=== PATIENT | male | born 1940 | race Caucasian/White ===

== ENCOUNTER → 2017-03-11 | Outpatient (CLI) | payer MEDICARE ==
[~2017-03-11] MED LIST: ATOR20TA49 PO; CIPR-225 PO; HYDR-3875 PO; PHEN-640 PO; SULF1TAB35 PO; TAMS0.4C98 PO
--- NOTE | 2017-03-11 19:21 | Diagnostic Imaging Report ---
Supine view of the abdomen. INDICATION: Right renal stone. FINDINGS: Nonspecific small densities up to 3 mm in size are seen projecting over the flanks could represent stones in the kidneys. No definitive ureteric or bladder stone is noted. Phleboliths are noted in the pelvis. IMPRESSION: Faint densities along the flank areas bilaterally may represent kidney stones up to 3 mm in size. Dictated by: Dictated on workstation # [id number]
== END ==
LOC: RAD 13:52
PROVIDERS: ATTEND Urology
DX: N20.0 Calculus of kidney (principal)
CPT/HCPCS: 74000

== ENCOUNTER → 2017-03-25 | Outpatient (CLI) | payer MEDICARE ==
--- NOTE | 2017-03-25 20:21 | Diagnostic Imaging Report ---
EXAMINATION: Supine view of the abdomen. INDICATION: Right renal stone, post lithotripsy. COMPARISON: 03/11/2017. FINDINGS: The previously seen calcific densities projecting over the flank areas are not well demonstrated on the current exam. Moderate amount of fecal material is seen in the colon. Calcifications in the pelvis are likely phleboliths. IMPRESSION: The previously seen flank calcifications are not well demonstrated at this time. No definitive urinary tract stones. Dictated by: Dictated on workstation # [id number]
== END ==
LOC: RAD 15:11
PROVIDERS: ATTEND Urology
DX: N20.0 Calculus of kidney (principal); Z98.890 Other specified postprocedural states
CPT/HCPCS: 74000

== ENCOUNTER 2019-09-21 05:59 | Outpatient (RCR) | payer MEDICARE, OTHER ==
[~2019-09-21] VITALS: Ht 185 cm; Wt 90.9 kg
[~2019-09-21 05:59] MED LIST changes: -TAMS0.4C98 PO; +TMSL.4C PO
[2019-09-21] MEDS ORDERED: AMLO5TAB9 PO (09:53)
== END 2019-09-22 14:57 | disposition home or self-care (01) ==
LOC: PREOP 05:59
PROVIDERS: ATTEND Specialist
DX: Z01.818 Encounter for other preprocedural examination (principal); Z01.812 Encounter for preprocedural laboratory examination; Z11.59 Encounter for screening for other viral diseases
CPT/HCPCS: 87635

== ENCOUNTER 2019-09-25 08:50 | Day surgery (SDC) | payer MEDICARE, OTHER ==
[~2019-09-25] VITALS: Ht 182.9 cm; Wt 90.9 kg
[~2019-09-25 08:50] MED LIST changes: +AMLO5TAB9 PO
[2019-09-25 09:00] VITALS: BP 145/92
[2019-09-25] MEDS: TETRACAINE 0.5% OPHTH SOLN 4 ML BTL (SINGLE DOSE ONLY) OU PRN ×4 (09:10→09:26)
--- OUTSIDE RECORDS SUMMARY | 2019-09-25 09:13 | XMS REPORT | Continuity of Care Document ---
Author Organization Unknown Address Unknown Phone Unavailable Allergies Active Description Code Type Severity Reaction Onset Reported/Identified Relationship to Patient Clinical Status Yes NO KNOWN DRUG ALLERGIES UNKNOWN NO KNOWN DRUG ALLERG Yes NO KNOWN DRUG ALLERGIES UNKNOWN UNKNOWN Yes No Known Drug Allergies [id number] Drug Allergy Unknown N/A 09/21/2019 Medications Medication Packaging Start Date St op Date Route Dosage Sig ONDANSETRON VIAL INJ 4 MG/2CC (ZOFRAN 2CC VIAL) MG 02/14/2017 02/14/2017 PRN ONCE FENTANYL INJ 100 MCG/2CC VIAL MCG 02/14/2017 02/14/2017 ONCE&1708 KETOROLAC VIAL INJ 30 MG/CC (TORADOL VIAL) MG 02/14/2017 02/14/2017 PRN ONCE FENTANYL INJ 100 MCG/2CC VIAL MCG 02/14/2017 02/14/2017 ONCE&1717 MIDAZOLAM 2CC VIAL INJ 1 MG/ CC (VERSED 2CC VIAL) MG 02/14/2017 02/14/2017 ONCE&1727 FENTANYL INJ 100 MCG/2CC VIAL MCG 02/14/2017 02/14/2017 ONCE&1743 Hyoscyamine oral disintegrating 0.125mg(Le vsin) MG 02/14/2017 02/14/2017 ONCE&1748 POTASSIUM CHLORIDE TAB 20 MEQ (K-DUR) MEQ 02/14/2017 02/14/2017 ONCE&1801 CEFTRIAXONE PREMIX IV BAG IV 1 GM/50CC (ROCEPHIN PREMIX IV BAG) GM 02/14/2017 02/14/2017 ONCE&1826 NORMAL SALINE 1000CC IV BAG INJ 0.9 % (NS 1000CC IV BAG) ml 02/14/2017 03/01/2017 CONTINUOUSEVERY 0 Hour SMZ/TMP DS TAB (SEPTRA DS) (Bactrim DS) TAB 02/14/2017 02/14/2017 ONCE&1916 SMZ/TMP DS TAB (SEPTRA DS) (Bactrim DS) TAB 02/14/2017 02/21/2017 BID&0800,2000 KETOROLAC VIAL INJ 30 MG/CC (TORADOL VIAL) MG 02/15/2017 02/15/2017 PRN ONCE CEFTRIAXONE PREMIX IV BAG IV 1 GM/50CC (ROCEPHIN PREMIX IV BAG) GM 02/15/2017 02/21/2017 Daily&0900 Problems Date Dx Coded Attending Type Code Diagnosis Diagnosed By 03/21/1456 ROSANNA PERALTA MD, Ot Z01.812 ENCOUNTER FOR PREPROCEDURAL LABORATORY E 03/21/1456 ROSANNA PERALTA MD, Ot Z01.818 ENCOUNTER FOR OTHER PREPROCEDURAL EXAMIN 03/21/1456 ROSANNA PERALTA MD, Ot Z11.59 ENCOUNTER FOR SCREENING FOR OTHER VIRAL 02/14/2017 David Powesr 592.1 CALCULUS OF URETER 02/14/2017 David Powers 601.9 PROSTATITIS, UNSPECIFIED 02/14/2017 David Powers N20.1 CALCULUS OF URETER 02/14/2017 David Powers N41.9 INFLAMMATORY DISEASE OF PROSTATE, UNSPECIFIED 02/15/2017 Epifanio Carson 594.1 OTHER CALCULUS IN BLADDER 02/15/2017 Epifanio Carson 599.0 URINARY TRACT INFECTION, SITE NOT SPECIFIED 02/15/2017 Epifanio Carson N21.0 CALCULUS IN BLADDER 02/15/2017 Epifanio Carson N39.0 URINARY TRACT INFECTION, SITE NOT SPECIFIED 02/20/2017 David Powers 592.0 CALCULUS OF KIDNEY 02/20/2017 David Powers N20.0 CALCULUS OF KIDNEY 02/27/2017 CHRISTOPHER MACK MD, Ot N20.2 CALCULUS OF KIDNEY WITH CALCULUS OF URET 02/27/2017 CHRISTOPHER MACK MD Ot Z01.8 18 ENCOUNTER FOR OTHER PREPROCEDURAL EXAMIN 02/27/2017 CHRISTOPHER MACK MD, Ot N20.2 CALCULUS OF KIDNEY WITH CALCULUS OF URET 02/27/2017 CHRISTOPHER MACK MD Ot Z01.8 18 ENCOUNTER FOR OTHER PREPROCEDURAL EXAMIN 02/27/2017 CHRISTOPHER MACK MD, Ot E78.5 HYPERLIPIDEMIA, UNSPECIFIED 02/27/2017 CHRISTOPHER MACK MD Ot N20.2 CALCULUS OF KIDNEY WITH CALCULUS OF URET 02/27/2017 CHRISTOPHER MACK MD Ot N40.0 BENIGN PROSTATIC HYPERPLASIA WITHOUT LOW 02/27/2017 CHRISTOPHER MACK MD Ot Z79.8 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 02/27/2017 CHRISTOPHER MACK MD Ot N20.2 CALCULUS OF KIDNEY WITH CALCULUS OF URET 02/27/2017 CHRISTOPHER MACK MD Ot Z01.8 18 ENCOUNTER FOR OTHER PREPROCEDURAL EXAMIN 02/28/2017 CHRISTOPHER MACK MD Ot N20.2 CALCULUS OF KIDNEY WITH CALCULUS OF URET 02/28/2017 CHRISTOPHER MACK MD Ot Z01.8 18 ENCOUNTER FOR OTHER PREPROCEDURAL EXAMIN 03/01/2017 CHRISTOPHER MACK MD Ot E78.5 HYPERLIPIDEMIA, UNSPECIFIED 03/01/2017 CHRISTOPHER MACK MD Ot N20.2 CALCULUS OF KIDNEY WITH CALCULUS OF URET 03/01/2017 CHRISTOPHER MACK MD Ot N40.0 BENIGN PROSTATIC HYPERPLASIA WITHOUT LOW 03/01/2017 CHRISTOPHER MACK MD Ot Z79.8 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 03/01/2017 CHRISTOPHER MACK MD Ot E78.5 HYPERLIPIDEMIA, UNSPECIFIED 03/01/2017 CHRISTOPHER MACK MD Ot N20.2 CALCULUS OF KIDNEY WITH CALCULUS OF URET 03/01/2017 CHRISTOPHER MACK MD Ot N40.0 BENIGN PROSTATIC HYPERPLASIA WITHOUT LOW 03/01/2017 CHRISTOPHER MACK MD Ot Z79.8 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 03/05/2017 CHRISTOPHER MACK MD Ot E78.5 HYPERLIPIDEMIA, UNSPECIFIED 03/05/2017 CHRISTOPHER MACK MD Ot N20.2 CALCULUS OF KIDNEY WITH CALCULUS OF URET 03/05/2017 CHRISTOPHER MACK MD Ot N40.0 BENIGN PROSTATIC HYPERPLASIA WITHOUT LOW 03/05/2017 CHRISTOPHER MACK MD Ot Z79.8 99 OTHER DETENTION (CURRENT) DRUG THERAPY 03/15/2017 CHRISTOPHER MACK MD Ot E78.5 HYPERLIPIDEMIA, UNSPECIFIED 03/15/2017 CHRISTOPHER MACK MD Ot N20.2 CALCULUS OF KIDNEY WITH CALCULUS OF URET 03/15/2017 CHRISTOPHER MACK MD Ot N40.0 BENIGN PROSTATIC HYPERPLASIA WITHOUT LOW 03/15/2017 CHRISTOPHER MACK MD Ot Z79.8 99 OTHER DETENTION (CURRENT) DRUG THERAPY 03/22/2017 CHRISTOPHER MACK MD Ot N20.0 CALCULUS OF KIDNEY 04/05/2017 CHRISTOPHER MACK MD, Ot N20.0 CALCULUS OF KIDNEY 04/05/2017 CHRISTOPHER MACK MD Ot Z98.8 90 OTHER SPECIFIED POSTPROCEDURAL STATES Procedures There is no data. Results Test Result Range Lipid Panel - 12/18/16 08:15 C/HDL 3.5 3.7-6.7 Cholesterol 153 mg/dL 100-240 HDL 44 mg/dL 30-85 LDL-Calculated 86 mg/dL 0-100 Trig 113 mg/dL 35-160 VLDL 23 mg/dL 0-42 Urine Culture - 01/17/17 19:19 PRELIM CULTURE RESULTS >100,000 Gram Negativ e Lactose It Coordinator SHANNON / ID to Follow MEDIA PLATED Setup at 19:23 on 01/17/2017 CULTURE SOURCE void Sensi - 01/17/17 19:19 FINAL CULTURE RESULTS Escherichia coli (Isolate 1) Ampicillin/Sulbactam <=8/4 Ampicillin <=8 Amoxicillin/K Clavulanate <=8/4 Ceftriaxone <=8 Ciprofloxacin <=1 Nitrofurantoin <=32 Gentamicin <=4 Levofloxacin <=2 Trimethoprim/ Sulfamethoxazole <=2/38 Tetracycline <=4 Amikacin <=16 Aztreonam <=8 Ceftazidime <=1 Ceftazidime/K Clavulanate <=0.25 Cephalothin <=8 Cefotaxime <=2 Cefotaxime/K Clavulanate <=0.5 Cefoxitin <=8 Cefazolin <=8 Cefepime <=8 Cefuroxime <=4 Ertapenem <=1 Imipenem <=4 Meropenem <=4 Piperacillin/Tazobactam <=16 Piperacillin <=16 Tigecycline <=2 Tobramycin <=4 BMP - 02/14/17 17:08 Anion Gap 20 6-14 BUN 20 mg/dL 5-25 Calcium 9.9 mg/dL 8.3-10.4 Chloride 105 mmol/L 95-114 CO2 18 mEq/L 22-33 Creat 1.55 mg/dL 0.50-1.50 eGFR 44 mL/min/1.73m2 >59 Glucose 126 mg/dL 70-110 Osmo 293 280-295 Potassium 3.2 mmol/L 3.5-5.3 Sodium 140 mmol/L 134-148 Urine Culture - 02/14/17 17:08 PRELIM CULTURE RESULTS No Growth 24 hours FINAL CULTURE RESULTS No Growth 48 hours CULTURE SOURCE clean catch CBC with Auto Diff - 02/15/17 06:51 Baso% 0.20 % 0.00-2.50 Eos 0.1 K/uL 0.0-0.7 Eos% 1.0 % 0.0-7.0 Hct 38.4 % 42.0-52.0 Hgb 12.4 g/dL 14.0-17.0 Lym 1.59 K/uL 0.60-3.40 Lym% 17.1 % 10.0-50.0 MCH 31.0 pg 27.0-31.2 MCHC 32.3 g/dL 32.0-36.0 MCV 96.0 fL 80.0-97.0 [place]% 10.0 % 0.0-12.0 MPV 10.1 fL 7.4-10.0 Helio% 71.7 % 37.0-80.0 Plt 203 K/uL 150-400 RBC 4.00 M/uL 4.20-5.40 RDW 13.5 % 11.6-14.8 WBC 9.31 K/uL 5.00-10.00 Helio 6.68 K/uL 2.00-6.90 [place] 0.9 K/uL 0.0-0.9 Baso 0.0 K/uL 0.0-0.2 Methicillin resistant Staphylococcus aur eus (MRSA) screening culture - 02/27/17 08:00 Methicillin resistant Staphylococcus aureus (MRSA) scr eening culture NEG NRG PSA Yearly Screen - 02/10/19 08:21 PSA TOTAL 2.7 ng/mL 0.0-4.0 Coronavirus SARS-CoV-2 SO 2019 - 0 13:20 Coronavirus Ab [Units/volume] in Serum Negative Negative Encounters ACCT No. Visit Date/Time Discharge Status Pt. Type Provider Facility Loc./Unit Complaint [id number] 06/10/2019 13:44:00 06/10/2019 23:59 :00 DIS Outpatient AilynIon [id number] 04/29/2019 11:21:00 04/29/2019 23:59 :00 DIS Outpatient AilynIon [id number] 02/10/2019 08:17:00 02/10/2019 23:59: 00 DIS Outpatient Ailyn Ion [id number] 02/09/2019 15:38:00 02/09/2019 23:59: 00 DIS Outpatient AilynIon [id number] 02/20/2017 03:41:00 02/20/2017 03:47: 00 DIS Outpatient David Powers [id number] 02/15/2017 06:32:00 02/15/2017 07:23: 00 [id number]/14[facility]2017 16:57:00 02/14/2017 19:05: 00 [id number] 01/17/2017 19:18:00 01/17/2017 23:59: 00 DIS Outpatient AilynIon [id number] 12/18/2016 08:10:00 12/18/2016 23:59: 00 DIS Outpatient Ailyn Ion [id number] 02/14/2017 17:09:42 Document Registration [id number] 09/21/2019 05:59:00 020 14:57:00 DIS Outpatient ROSANNA PERALTA MD [facility] PREOP CATARACT RIGHT EYE [id number] 03/25/2017 15:11:00 017 23:59:59 CLS Outpatient CHRISTOPHER MACK MD [facility] RAD RENAL STONE [id number] 03/12/2017 08:00:00 017 23:59:59 CLS Preadmit CHRISTOPHER MACK MD [facility] SDC RIGHT STONE [id number] 03/11/2017 13:52:00 017 23:59:59 CLS Outpatient CHRISTOPHER MACK MD [facility] RAD N20.0 [id number] 02/27/2017 07:03:00 017 13:02:00 DIS Outpatient CHRISTOPHER MACK MD [facility] LEFT URETERAL AND BILAT ERAL RENAL STONES [id number] 02/26/2017 05:31:00 23:59:59 CLS Outpatient CHRISTOPHER MACK MD [facility] PREOP LEFT URETERAL AND BILAT ERAL RENAL STONES [id number] 09/25/2019 12:00:00 P EN Preadchris PERALTA MD, ROSANNA Goncalves [facility] CATARACT RIGHT EYE
[2019-09-25] MEDS ORDERED: POVIDONE (BETADINE) OPHTH SOLN 5% 30 ML OP ONE (09:15)
[2019-09-25] MEDS ORDERED: LIDOCAINE PF 1% 2 ML VIAL IR PRN (09:15)
[2019-09-25] MEDS ORDERED: TIMOLOL MALEATE 0.5% 5 ML (TIMOPTIC) BTL OU PRN (09:15)
[2019-09-25] MEDS ORDERED: MOXIFLOXACIN OPHTH SOLN 5 MG/ML 0.3 ML SYRINGE OP ONE (09:15)
[2019-09-25] MEDS: CYCLOPENTOLATE 1% (CYCLOGYL) 2 ML DROPS OP SCH ×3 (09:16→09:27)
[2019-09-25] MEDS: PHENYLEPHRINE 10% OPHTH (NEO-SYN) 5 ML BTL OU SCH ×3 (09:16→09:27)
[2019-09-25] MEDS ORDERED: MIDAZOLAM 2 MG/2 ML (VERSED) VIAL ONE (09:38)
--- NOTE | 2019-09-25 10:08 | Ophthalmologist Pre-Op Note ---
Pre-Operative Progress Note H&P Reviewed The H&P was reviewed, patient examined and no changes noted. Date H&P Reviewed: Sep 25, 2019 Time H&P Reviewed: 10:08 Pre-Op Dx Cataract, Right Eye ROSANNA PERALTA MD Sep 25, 2019 10:08
[2019-09-25] MEDS ORDERED: acetaZOLAMIDE ER 500 MG CAP (DIAMOX SEQUELS) PO ONE (10:30)
--- NOTE | 2019-09-25 10:39 | Ophthalmology Operative Report ---
Cataract removal/placement IOL PREOPERATIVE DIAGNOSIS: Cataract Right Eye POSTOPERATIVE DIAGNOSIS: Cataract Right Eye PROCEDURE: Cataract removal and placement of posterior chamber implant, right eye SURGEON: Onofre Peralta ANESTHESIA: Topical with sedation COMPLICATIONS: None ESTIMATED BLOOD LOSS: Minimal DESCRIPTION OF PROCEDURE: After proper informed consent was obtained, the patient, a 79 male, was taken to the Operating Room and the right eye was anesthetized with tetracaine. The right eye was then prepped and draped in the usual manner. A wire lid speculum was placed. A paracentesis was made at the left hand position. Preservative free lidocaine was injected into the anterior chamber followed by viscoelastic. A clear corneal incision was made in the temporal position. A capsulorrhexis was preformed and the central nuclear and cortical material were removed. The posterior capsule was polished and Stiven 22.0 [id number] IOL was placed into the capsular bag. The residual viscoelastic was aspirated and balanced saline solution was injected into the anterior chamber. Moxifloxacin was injected into the anterior chamber. The wound was checked and found to be water tight. The patient tolerated the procedure well without complications. ONOFRE PERALTA MD Sep 25, 2019 10:39
[2019-09-25 10:46] VITALS: BP 149/96
--- NOTE | 2019-09-25 12:24 | Anesthesia-General Post-Op ---
MAC Patient Condition Mental Status/LOC: Same as Preop Cardiovascular: Satisfactory Nausea/Vomiting: Absent Respiratory: Satisfactory Pain: Controlled Complications: Absent Post Op Complications Complications None Follow Up Care/Instructions Patient Instructions None needed. Anesthesiology Discharge Order Discharge Order Patient is doing well, no complaints, stable vital signs, no apparent adverse anesthesia problems. No complications reported per nursing. DOMINGO NGUYEN CRNA Sep 25, 2019 12:23
== END 2019-09-25 10:46 | disposition home or self-care (01) ==
LOC: SDC 08:50
PROVIDERS: ATTEND Specialist
DX: H25.11 Age-related nuclear cataract, right eye (principal); I10 Essential (primary) hypertension; Z79.899 Other long term (current) drug therapy; Z80.0 Family history of malignant neoplasm of digestive organs

== ENCOUNTER 2019-10-06 05:37 | Outpatient (RCR) | payer MEDICARE, OTHER ==
[~2019-10-06] VITALS: Ht 182 cm; Wt 90.9 kg
== END 2019-10-07 11:02 | disposition home or self-care (01) ==
LOC: PREOP 05:37
PROVIDERS: ATTEND Specialist
DX: Z01.818 Encounter for other preprocedural examination (principal); Z11.59 Encounter for screening for other viral diseases
CPT/HCPCS: 87635

== ENCOUNTER 2019-10-09 07:35 | Day surgery (SDC) | payer MEDICARE, OTHER ==
[~2019-10-09] VITALS: Ht 182 cm; Wt 90.9 kg
[2019-10-09 07:35] VITALS: BP 164/88
--- OUTSIDE RECORDS SUMMARY | 2019-10-09 07:41 | XMS REPORT | Continuity of Care Document ---
Author Organization Unknown Address Unknown Phone Unavailable Allergies Active Description Code Type Severity Reaction Onset Reported/Identified Relationship to Patient Clinical Status Yes NO KNOWN DRUG ALLERGIES UNKNOWN NO KNOWN DRUG ALLERG Yes NO KNOWN DRUG ALLERGIES UNKNOWN UNKNOWN Yes No Known Drug Allergies [id number] Drug Allergy Unknown N/A 09/21/2019 Medications Medication [...] FOR SCREENING FOR OTHER VIRAL 02/14/2017 David Powers 592.1 CALCULUS OF URETER 02/14/2017 David Powers [...] CHRISTOPHER MACK MD Ot Z79.8 99 OTHER REED CLEANER (CURRENT) DRUG THERAPY 02/27/2017 CHRISTOPHER MACK MD [...] CHRISTOPHER MACK MD Ot Z79.8 99 OTHER REED CLEANER (CURRENT) DRUG THERAPY 03/01/2017 CHRISTOPHER MACK MD Ot E78.5 HYPERLIPIDEMIA, UNSPECIFIED 03/01/2017 CHRISTOPHER MACK MD Ot N20.2 CALCULUS OF KIDNEY WITH CALCULUS OF URET 03/01/2017 CHRISTOPHER MACK MD Ot N40.0 BENIGN PROSTATIC HYPERPLASIA WITHOUT LOW 03/01/2017 CHRISTOPHER MAKC MD Ot Z79.8 99 OTHER REED CLEANER (CURRENT) DRUG THERAPY 03/05/2017 CHRISTOPHER MACK MD Ot E78.5 HYPERLIPIDEMIA, UNSPECIFIED 03/05/2017 CHRISTOPHER MACK MD Ot N20.2 CALCULUS OF KIDNEY WITH CALCULUS OF URET 03/05/2017 CHRISTOPHER MACK MD Ot N40.0 BENIGN PROSTATIC HYPERPLASIA WITHOUT LOW 03/05/2017 CHRISTOPHER MACK MD Ot Z79.8 99 OTHER [facility] (CURRENT) DRUG THERAPY 03/15/2017 CHRISTOPHER MACK MD Ot E78.5 HYPERLIPIDEMIA, UNSPECIFIED 03/15/2017 CHRISTOPHER MACK MD Ot N20.2 CALCULUS OF KIDNEY WITH CALCULUS OF URET 03/15/2017 CHRISTOPHER MACK MD Ot N40.0 BENIGN PROSTATIC HYPERPLASIA WITHOUT LOW 03/15/2017 CHRISTOPHER MACK MD Ot Z79.8 99 OTHER [facility] (CURRENT) DRUG THERAPY 03/22/2017 CHRISTOPHER MACK MD Ot N20.0 CALCULUS OF KIDNEY 04/05/2017 CHRISTOPHER MACK MD Ot N20.0 CALCULUS OF KIDNEY 04/05/2017 CHRISTOPHER MACK MD Ot Z98.8 90 OTHER SPECIFIED POSTPROCEDURAL STATES 09/22/2019 ROSANNA PERALTA MD Ot Z01.812 ENCOUNTER FOR PREPROCEDURAL LABORATORY E 09/22/2019 ROSANNA PERALTA MD Ot Z01.818 ENCOUNTER FOR OTHER PREPROCEDURAL EXAMIN 09/22/2019 ROSANNA PERALTA MD Ot Z11.59 ENCOUNTER FOR SCREENING FOR OTHER VIRAL 09/25/2019 ROSANNA PERALTA MD Ot H25.11 AGE-RELATED NUCLEAR CATARACT, RIGHT EYE 09/25/2019 ROSANNA PERALTA MD Ot I10 ESSENTIAL (PRIMARY) HYPERTENSION 09/25/2019 ROSANNA PERALTA MD Ot Z79.899 OTHER [facility] (CURRENT) DRUG THERAPY 09/25/2019 ROSANNA PERALTA MD Ot Z80 .0 FAMILY HISTORY OF MALIGNANT NEOPLASM OF Procedures There is no data. Results Test Result Range Lipid Panel - 12/18/16 08:15 C/HDL 3.5 3.7-6.7 Cholesterol 153 mg/dL 100-240 HDL 44 mg/dL 30-85 LDL-Calculated 86 mg/dL 0-100 Trig 113 mg/dL 35-160 VLDL 23 mg/dL 0-42 Urine Culture - 01/17/17 19:19 PRELIM CULTURE RESULTS >100,000 Gram Negativ e Lactose Wastewater Supervisor SHANNON / ID to Follow MEDIA PLATED [...] 32.3 g/dL 32.0-36.0 MCV 96.0 fL 80.0-97.0 [place]% 10.0 % 0.0-12.0 MPV 10.1 fL 7.4-10.0 Helio% 71.7 % 37.0-80.0 Plt 203 K/uL 150-400 RBC 4.00 M/uL 4.20-5.40 RDW 13.5 % 11.6-14.8 WBC 9.31 K/uL 5.00-10.00 Helio 6.68 K/uL 2.00-6.90 [place] 0.9 K/uL 0.0-0.9 Baso 0.0 K/uL 0.0-0.2 Methicillin resistant Staphylococcus aur eus (MRSA) screening culture - 02/27/17 08:00 Methicillin resistant Staphylococcus aureus (MRSA) scr eening culture NEG NRG PSA Yearly Screen - 02/10/19 08:21 PSA TOTAL 2.7 ng/mL 0.0-4.0 Coronavirus SARS-CoV-2 SO 2018 0 13:20 Coronavirus Ab [Units/volume] in Serum Negative Negative Coronavirus SARS-CoV-2 SO 2018 0 08:05 Coronavirus Ab [Units/volume] in Serum Negative Negative Encounters ACCT No. Visit Date/Time Discharge Status Pt. Type Provider Facility Loc./Unit Complaint [id number] 06/10/2019 13:44:00 06/10/2019 23:59 :00 DIS Outpatient Ion Robertson [id number] 04/29/2019 11:21:00 04/29/2019 23:59 :00 DIS Outpatient Ion Robertson [id number] 02/10/2019 08:17:00 02/10/2019 23:59: 00 DIS Outpatient Ion Robertson [id number] 02/09/2019 15:38:00 02/09/2019 23:59: 00 DIS Outpatient Ion Robertson [id number] 02/20/2017 03:41:00 02/20/2017 03:47: 00 DIS Outpatient David Powers [id number] 02/15/2017 06:32:00 02/15/2017 07:23: 00 DIS Outpatient Yamileth [facility] enter ER [id number] 02/14/2017 16:57:00 02/14/2017 19:05: 00 DIS Outpatient Gio [facility] ER [id number] 01/17/2017 19:18:00 01/17/2017 23:59: 00 DIS Outpatient Ion Robertson [id number] 12/18/2016 08:10:00 12/18/2016 23:59: 00 DIS Outpatient Ion Robertson [id number] 02/14/2017 17:09:42 Document Registration [id number] 10/06/2019 05:37:00 11:02:00 DIS Outpatient ROSANNA PERALTA MD [facility] PREOP CATARACT LEFT EYE [id number] 09/25/2019 08:50:00 10:46:00 DIS Outpatient ROSANNA PERALTA MD [facility] CATARACT RIGHT EYE [id number] 09/21/2019 05:59:00 14:57:00 DIS Outpatient ROSANNA PERALTA MD [facility] PREOP CATARACT RIGHT EYE [id number] 03/25/2017 15:11:00 017 23:59:59 CLS Outpatient CHRISTOPHER MACK MD [facility] RAD RENAL STONE [id number] 03/12/2017 08:00:00 017 23:59:59 CLS Preadmit CHRISTOPHER MACK MD, V [facility] RIGHT STONE [id number] 03/11/2017 13:52:00 017 23:59:59 CLS Outpatient CHRISTOPHER MACK MD [facility] RAD N20.0 [id number] 02/27/2017 07:03:00 017 13:02:00 DIS Outpatient CHRISTOPHER MACK MD [facility] LEFT URETERAL AND BILAT ERAL RENAL STONES [id number] 02/26/2017 05:31:00 017 23:59:59 CLS Outpatient CHRISTOPHER MACK MD [facility] PREOP LEFT URETERAL AND BILAT ERAL RENAL STONES [id number] 10/09/2019 10:00:00 P EN ROSANNA Mora MD [facility] CATARACT LEFT EYE
[2019-10-09] MEDS ORDERED: POVIDONE (BETADINE) OPHTH SOLN 5% 30 ML OP ONE (07:45)
[2019-10-09] MEDS ORDERED: TIMOLOL MALEATE 0.5% 5 ML (TIMOPTIC) BTL OU PRN (07:45)
[2019-10-09] MEDS ORDERED: LIDOCAINE PF 1% 2 ML VIAL IR PRN (07:45)
[2019-10-09] MEDS ORDERED: MOXIFLOXACIN OPHTH SOLN 5 MG/ML 0.3 ML SYRINGE OP ONE (07:45)
[2019-10-09] MEDS: TETRACAINE 0.5% OPHTH SOLN 4 ML BTL (SINGLE DOSE ONLY) OP PRN ×4 (07:50→08:20)
[2019-10-09] MEDS: CYCLOPENTOLATE 1% (CYCLOGYL) 2 ML DROPS OP SCH ×3 (08:04→08:20)
[2019-10-09] MEDS: PHENYLEPHRINE 10% OPHTH (NEO-SYN) 5 ML BTL OU SCH ×3 (08:04→08:20)
--- NOTE | 2019-10-09 08:46 | Ophthalmologist Pre-Op Note ---
Pre-Operative Progress Note H&P Reviewed The H&P was reviewed, patient examined and no changes noted. Date H&P Reviewed: Oct 09, 2019 Time H&P Reviewed: 08:46 Pre-Op Dx Cataract, Left Eye ROSANNA PERALTA MD Oct 09, 2019 08:46
[2019-10-09] MEDS ORDERED: MIDAZOLAM 2 MG/2 ML (VERSED) VIAL ONE (08:51)
--- NOTE | 2019-10-09 09:11 | Ophthalmology Operative Report ---
Cataract removal/placement IOL PREOPERATIVE DIAGNOSIS: Cataract Left Eye POSTOPERATIVE DIAGNOSIS: Cataract Left Eye PROCEDURE: Cataract removal and placement of posterior chamber implant, left eye SURGEON: Onofre Peralta ANESTHESIA: Topical with sedation COMPLICATIONS: None ESTIMATED BLOOD LOSS: Minimal DESCRIPTION OF PROCEDURE: After proper informed consent was obtained, the patient, a 79 male, was taken to the Operating Room and the left eye was anesthetized with tetracaine. The left eye was then prepped and draped in the usual manner. A wire lid speculum was placed. A paracentesis was made at the left hand position. Preservative free lidocaine was injected into the anterior chamber followed by viscoelastic. A clear corneal incision was made in the temporal position. A capsulorrhexis was preformed and the central nuclear and cortical material were removed. The posterior capsule was polished and an Stiven 17.0 [id number] was placed into the capsular bag. The residual viscoelastic was aspirated and balanced saline solution was injected into the anterior chamber. Moxifloxacin was injected into the anterior chamber. The wound was checked and found to be water tight. The patient tolerated the procedure well without complications. ONOFRE PERALTA MD Oct 09, 2019 09:11
[2019-10-09 09:20] VITALS: BP 165/50
[2019-10-09] MEDS ORDERED: acetaZOLAMIDE ER 500 MG CAP (DIAMOX SEQUELS) PO ONE (09:30)
--- NOTE | 2019-10-09 11:45 | Anesthesia-General Post-Op ---
MAC Patient Condition Mental Status/LOC: Same as Preop Cardiovascular: Satisfactory Nausea/Vomiting: Absent Respiratory: Satisfactory Pain: Controlled Complications: Absent Post Op Complications Complications None Follow Up Care/Instructions Patient Instructions None needed. Anesthesiology Discharge Order Discharge Order Patient is doing well, no complaints, stable vital signs, no apparent adverse anesthesia problems. No complications reported per nursing. MARY GIRALDO DISPOSAL OPERATOR Oct 09, 2019 11:45
== END 2019-10-09 09:20 | disposition home or self-care (01) ==
LOC: SDC 07:35
PROVIDERS: ATTEND Specialist
DX: H25.12 Age-related nuclear cataract, left eye (principal); I10 Essential (primary) hypertension; Z79.899 Other long term (current) drug therapy; Z80.0 Family history of malignant neoplasm of digestive organs
CPT/HCPCS: 66984; V2632